=== PATIENT | female | born 1985 | race Caucasian/White ===

== ENCOUNTER 2022-01-21 08:50 | Outpatient (CLI) | payer OTHER ==
--- NOTE | 2022-01-21 16:51 | MRI Report ---
PROCEDURE: Shoulder RT W/O INDICATIONS: PAIN IN SHOULDER TECHNIQUE: Noncontrast oblique coronal T2 fast spin echo with fat saturation, oblique sagittal T1 spin echo and T2 fast spin echo with fat saturation, axial T1 spin echo and T2 fast spin echo with fat saturation t hrough the shoulder. COMPARISON: None. FINDINGS: Image quality: Excellent. Rotator cuff: Distal supraspinatus tendinosis and possible very low-grade articular and bursal surfac e partial-thickness tear at its insertion on humeral head is seen extending to musculotendinous junct ion. Distal infraspinatus and subscapularis tendons are intact. No rotator cuff muscle atrophy on sag ittal images. Bones and bursae: No bone marrow contusions or fractures. Mild acromioclavicular joint osteoarthriti c changes are seen with small inferior marginal osteophyte formation depressing on musculotendinous j unction of supraspinatus.. The acromion demonstrates conventional anatomy, without an os acromiale. No pathologic subacromial/subdeltoid bursal fluid is present. Capsule and soft tissues: In the absence of intra-articular contrast, the labrum and glenohumeral li gaments appear intact. The long head of the biceps tendon demonstrates normal location and morpholog y. The rotator interval appears normal, without fibrosis. The coracohumeral ligament is normal in t hickness. IMPRESSION: 1. Tendinosis and possible very low-grade articular and bursal surface partial-thickness tear involvi ng distal supraspinatus extending to musculotendinous junction. No full-thickness rotator cuff tendon rupture. No muscle atrophy. 2. Mild acromioclavicular joint osteoarthritis. No fracture or dislocation. No significant joint effu dorothea or subacromial subdeltoid bursal fluid. 3. No evidence of focal labral tear. Reviewed by: Miguel Harris MD on 01/21/2022 4:50 PM PST Approved by: Miguel Harris MD on 01/21/2022 4:50 PM PST Station ID: [id number]
== END 2022-01-21 08:51 | disposition home or self-care (01) ==
LOC: DI 08:50
PROVIDERS: ATTEND Physician Assistant
DX: M19.011 Primary osteoarthritis, right shoulder (principal); M75.91 Shoulder lesion, unspecified, right shoulder

== ENCOUNTER 2022-04-01 12:27 | Outpatient (CLI) | payer OTHER ==
--- NOTE | 2022-04-01 15:29 | XRAY Report ---
PROCEDURE: Shoulder 3 View RT INDICATIONS: RIGHT SHOULDER PAIN TECHNIQUE: Views of the location were acquired. COMPARISON: None. FINDINGS: Bones: No fractures or dislocations. No suspicious bony lesions. Soft tissues: No suspicious soft tissue calcifications. IMPRESSION: Normal right shoulder Reviewed by: Avel Rueda on 04/01/2022 3:28 PM PDT Approved by: Avel Rueda on 04/01/2022 3:28 PM PDT Station ID: [id number]
== END 2022-04-01 23:59 | disposition home or self-care (01) ==
LOC: DI.WOS 12:27
PROVIDERS: ATTEND Physician Assistant
DX: M25.511 Pain in right shoulder (principal)

== ENCOUNTER 2022-05-20 08:40 | Outpatient (CLI) | payer OTHER ==
[~2022-05-20 08:40] MED LIST: GADOBUTROL 7.5 MMOL/7.5 ML VIAL ONE; lidocaine 1% 20 ML MDV ONE
[2022-05-20] MEDS ORDERED: GADOBUTROL 7.5 MMOL/7.5 ML VIAL IVP ONE (09:33)
[2022-05-20] MEDS ORDERED: lidocaine 1% 20 ML MDV SUBQ ONE (09:34)
[2022-05-20] MEDS ORDERED: iohexoL-240 10 ML VIAL IVP ONE (09:35)
--- NOTE | 2022-05-20 13:11 | XRAY Report ---
PROCEDURE: Arthrogram Needle Placement INDICATIONS: SUPERIOR GLENOID LABRUM LESION OF RIGHT SHOULDER FLUOROSCOPY DOSAGE: 18.58 uGy*m^2 FLUOROSCOPY TIME: 0.2 minutes. TECHNIQUE: The indications, alternatives, benefits, risks, and complications of the procedure were explained to the patient. Written informed consent was obtained and placed in the chart. The shoulder was examin ed fluoroscopically and a site for needle placement chosen for entry into the glenohumeral joint from an anterior approach. The skin was prepped and draped in the usual fashion, and 1% lidocaine infilt rated from skin down to joint capsule. A spinal needle was inserted into the glenohumeral joint, and a small amount of iodinated contrast media injected to confirm intra-articular placement of the need le tip. This was followed by approximately 12 mL dilute solution of a gadolinium containing MR contr ast agent. The needle was removed and a dressing was applied. The patient was given postprocedural instructions and sent to the MR suite for MR imaging. FINDINGS: Fluoroscopic images demonstrate intra-articular location of injected iodinated contrast. IMPRESSION: Successful fluoroscopically guided administration of dilute Gadolinium solution into the shoulder leonor pillai for MR arthrogram. Reviewed by: Miguel Ángel Landry MD on 05/20/2022 1:09 PM PDT Approved by: Miguel Ángel Landry MD on 05/20/2022 1:09 PM PDT Station ID: [id number]
--- NOTE | 2022-05-20 16:11 | MRI Report ---
PROCEDURE: Arthrogram Shoulder RT INDICATIONS: SUPERIOR GLENOID LABRUM LESION OF RIGHT SHOULDER CONTRAST: 12 mL of diluted intra-articular contrast. TECHNIQUE: After the administration of 12 mL of dilute intra-articular Gadolinium contrast, oblique coronal T1 a nd T2 spin echo with fat saturation, oblique sagittal T1 spin echo with and without fat saturation, o blique sagittal T2 fast spin echo with fat saturation, axial T1 spin echo with fat saturation through the shoulder. COMPARISON: Shoulder radiograph dated 04/01/2022. MRI of shoulder dated 01/21/2022 FINDINGS: Image quality: Excellent. Rotator cuff: Tendinosis and low to moderate grade articular and bursal surface partial-thickness tea r involving distal supraspinatus at its insertion on humeral head is seen extending to musculotendino us junction. Distal infraspinatus tendinosis and low-grade articular surface partial-thickness tear i s seen. Tendinosis and low-grade partial-thickness tear involving superior to mid fibers of distal barreto bscapularis is noted. No full-thickness rotator cuff tendon rupture. No rotator cuff muscle atrophy o n sagittal images. Bones and bursae: No bone marrow contusions or fractures. Mild to moderate acromioclavicular joint o steoarthritic changes are seen with joint space narrowing, subchondral sclerosis and downward osteoph yte formation depressing on musculotendinous junction of supraspinatus. Capsule and soft tissues: Postsurgical changes are noted involving superior anterior glenoid from sho or superior anterior labral repair. Signal abnormality involving superior anterior labrum with contra st extension at 1 to 2:00 position is seen suggestive of recurrent superior anterior labral tear. The long head of the biceps tendon demonstrates normal location and morphology. The rotator interval ap pears normal, without fibrosis. The coracohumeral ligament is of normal thickness. No intra-articul ar bodies. IMPRESSION: 1. Postsurgical changes in superior anterior glenoid likely from prior labral repair. No acute fractu re or dislocation. Mild to moderate acromioclavicular joint osteoarthritis. 2. Tendinosis and low to moderate grade articular and bursal surface partial-thickness tear involving distal supraspinatus extending to musculotendinous junction. Distal infraspinatus tendinosis and low -grade articular surface partial-thickness tear. Tendinosis and low-grade partial-thickness tear invo lving superior to mid fibers of distal subscapularis. No full-thickness rotator cuff tendon rupture. 3. Suggestion of recurrent tear involving superior anterior labrum at 1 to 2:00 position with abnorma l contrast extension. Reviewed by: Miguel Harris MD on 05/20/2022 4:09 PM PDT Approved by: Miguel Harris MD on 05/20/2022 4:09 PM PDT Station ID: [id number]
== END 2022-05-20 08:41 | disposition home or self-care (01) ==
LOC: DI 08:40
PROVIDERS: ATTEND Physician Assistant
DX: M19.011 Primary osteoarthritis, right shoulder (principal); M75.111 Incomplete rotator cuff tear or rupture of right shoulder, not specified as traumatic
CPT/HCPCS: 23350; 73222; 77002; A9585; Q9966